=== PATIENT | female | born 2000 | race Caucasian/White ===

== ENCOUNTER 2018-03-28 18:01 | Emergency (ER) | payer BC ==
[~2018-03-28] VITALS: Ht 162.6 cm; Wt 71.2 kg
[2018-03-28 18:11] VITALS: Ht 162.6 cm; Wt 71.2 kg
[2018-03-28 19:19] LABS: BASOPHIL % 0.4 % (0-2); PLATELET COUNT 296 x10^3mcL (130-400); RED CELL DISTRIBUTION WIDTH 13.3 % (11.5-14.5)
[2018-03-28 19:28] LABS: CALCIUM 8.7 mg/dL (8.5-10.1); CARBON DIOXIDE 28.8 mmol/L (21-32); CHLORIDE SERUM 105 mmol/L (98-107); CREATININE SERUM 0.5 mg/dL (0.6-1.0); GFR1 > 60 mL/min; GLUCOSE SERUM 86 mg/dL (74-106); POTASSIUM SERUM 3.7 mmol/L (3.5-5.1); SODIUM SERUM 144 mmol/L (136-145)
[2018-03-28 19:33] LABS: ALBUMIN 3.7 g/dL (3.4-5.0); ALKALINE PHOSPHATASE 110 U/L (46-116); ALT/SGPT 27 U/L (14-59); AST/SGOT 23 U/L (15-37); TOTAL PROTEIN, SERUM 7.8 g/dL (6.4-8.2)
[2018-03-28 20:43] LABS: microscopic required? NO
[2018-03-28 20:50] LABS: urine erythrocyte NEGATIVE (NEGATIVE)
[2018-03-28 22:43] VITALS: BP 102/57
== END 2018-03-28 22:43 | disposition home or self-care (01) ==
LOC: ED 18:01
PROVIDERS: Emergency Medicine
DX: R07.89 Other chest pain (principal); R06.02 Shortness of breath
CPT/HCPCS: 36415; 85378; Q0092